=== PATIENT | female | born 1975 | race Caucasian/White ===

== ENCOUNTER 2017-11-04 01:26 | Emergency (ER) | payer MEDICARE | END 2017-11-04 02:55 | disposition home or self-care (01) | LOC: ERS 01:26 | DX: L03.112 Cellulitis of left axilla (principal); F31.9 Bipolar disorder, unspecified; F17.210 Nicotine dependence, cigarettes, uncomplicated | CPT/HCPCS: 99283 ==

== ENCOUNTER 2020-08-28 13:23 | Outpatient (CLI) | payer MEDICARE ==
--- NOTE | 2020-08-28 14:41 | MMO ---
Bilateral MAMMO Bilat Screen [facility]. CLINICAL HISTORY: Patient is 45 years old and is seen for screening. The patient has no family history of breast cancer. The patient has no personal history of cancer. VIEWS: The views performed were: bilateral craniocaudal with tomosynthesis and bilateral mediolateral oblique with tomosynthesis. FILMS COMPARED: The present examination has been compared to prior imaging studies performed at [facility] on 10/06/2014 and 03/23/2016. This study has been interpreted with the assistance of computer-aided detection. MAMMOGRAM FINDINGS: There are scattered fibroglandular densities. There are no suspicious masses, suspicious calcifications, or new areas of architectural distortion. IMPRESSION: THERE IS NO MAMMOGRAPHIC EVIDENCE OF MALIGNANCY. A ROUTINE FOLLOW-UP MAMMOGRAM IN 1 YEAR IS RECOMMENDED. THE RESULTS OF THIS EXAM WERE SENT TO THE PATIENT. ACR BI-RADS Category 1 - Negative MAMMOGRAPHY NOTE: 1. A negative mammogram report should not delay a biopsy if a dominant of clinically suspicious mass is present. 2. Approximately 10% to 15% of breast cancers are not detected by mammography. 3. Adenosis and dense breasts may obscure an underlying neoplasm. Reported by: MARSHA SEGAL MD Electonically Signed: [id number]
== END 2020-08-28 13:24 | disposition home or self-care (01) ==
LOC: BICMAMMO 13:23
PROVIDERS: ATTEND Family Medicine
DX: Z12.31 Encounter for screening mammogram for malignant neoplasm of breast (principal)
CPT/HCPCS: 77063; 77067

== ENCOUNTER 2020-10-02 14:37 | Outpatient (CLI) | payer MEDICARE ==
--- NOTE | 2020-10-02 15:23 | MRI ---
MRI CERVICAL SPINE WITHOUT CONTRAST: 10/02/20 INDICATIONS: Cervical radiculopathy. Neck pain. FINDINGS: Moderate degenerative changes of the cervical spine noted. Degenerative disc changes with loss of dis c space seen at C3-4, C4-5 and C5-6. Mild anterior spurring. Mild anterior wedging of C4 and C5 verte brae. No significant vertebral body edema. degenerative disc and end plate signal changes are seen mo st prominent at C4-5 and C5-6. C2-3: No significant abnormality. C3-4: Slight anterolisthesis with diffuse disc bulge and spondylosis effacing the anterior subarachno id space. No cord impingement. Mild right foraminal narrowing. C4-5: Posterior disc bulge and spondylosis flatten the anterior subarachnoid space and abut the mildl y impinge on the anterior cord. Bilateral foraminal narrowing due to uncinate hypertrophy. C5-6: Disc bulge and spondylosis abuts the anterior cord. Mild left foraminal stenosis. C6-7: Disc bulge and spondylosis efface the anterior subarachnoid space without cord impingement. Lef t foraminal narrowing due to uncinate hypertrophy. C7-T1: No significant abnormality. Cervical cord signal appears normally preserved. IMPRESSION: Moderate degenerative disc changes of the cervical spine from C3 through C7. Cord impingement at C4-5 and C5-6 as described above. POS: AGW
== END 2020-10-02 14:38 | disposition home or self-care (01) ==
LOC: TBSIIMAG 14:37
PROVIDERS: ATTEND Psychiatry & Neurology Neurology
DX: M50.11 Cervical disc disorder with radiculopathy, high cervical region (principal)
CPT/HCPCS: 72141